=== PATIENT | female | born 1995 | race Caucasian/White ===

== ENCOUNTER 2019-12-03 20:03 | Emergency (ER) | payer BC, MEDICAID ==
--- NOTE | 2019-12-03 21:44 | EDM.PDOC ---
ED HPI GENERAL MEDICAL PROBLEM - General Chief Complaint: General Stated Complaint: FLU SYMPTOMS/31 WKS Time Seen by Provider: 12/03/19 20:23 Source of Information: Reports: Patient History Limitations: Reports: No Limitations - History of Present Illness INITIAL COMMENTS - FREE TEXT/NARRATIVE: Patient is a 24-year-old female who presents with complaints of sore throat, cough, and congestion for the last 2 days. Patient was seen at the walk-in clinic yesterday and tested for strep which was negative. She returns today concerned that she may have influenza as she has been recently exposed to individuals who have influenza A. States her temperature at home was 99.8. She has not taken any antipyretics. She has had some episodes of feeling hot today. Denies any nausea, vomiting, or diarrhea. Patient is 31 weeks . Patient states the fetus has been active. Generalized Pain Score (Numeric/FACES): 3 - Related Data Allergies Allergy/AdvReac Type Severity Reaction Status Date / Time No Known Allergies Allergy Verified 12/03/19 20:17 Home Meds: Home Meds Mv-Mn/Iron/FA/Herbal/Digestive [ One Tablet] 1 each PO DAILY 11/07/19 [ History] Albuterol [Ventolin HFA] 2 puff INH Q4HR PRN 12/03/19 [History] Past Medical History HEENT History: Reports: Other (See Below) Other HEENT History: scar tissue L ear Respiratory History: Reports: Asthma GEAR TESTER History: Reports: , Other (See Below) Other GEAR TESTER History: PCOS and gestational dm Endocrine/Metabolic History: Reports: Diabetes, Gestational Social & Family History - Family History Family Medical History: Noncontributory - Tobacco Use Smoking Status *Q: Former Smoker Used Tobacco, but Quit: Yes Month/Year Tobacco Last Used: 04/2019 - Caffeine Use Caffeine Use: Reports: Soda - Recreational Drug Use Recreational Drug Use: No ED ROS GENERAL - Review of Systems Review Of Systems: Comprehensive ROS is negative, except as noted in HPI. ED EXAM, GENERAL - Physical Exam Exam: See Below Exam Limited By: No Limitations General Appearance: Alert, WD/WN, No Apparent Distress Ears: Normal External Exam, Normal Canal, Hearing Grossly Normal, Normal TMs Throat/Mouth: Normal Inspection, Normal Lips, Normal Teeth, Normal Gums, Normal Oropharynx, Normal Voice, No Airway Compromise Respiratory/Chest: No Respiratory Distress, Lungs Clear, Normal Breath Sounds, No Accessory Muscle Use, Chest Non-Tender Cardiovascular: Normal Peripheral Pulses, Regular Rate, Rhythm, No Edema, No Gallop, No JVD, No Murmur, No Rub (Female) Exam: Other ( heart tones at 148-159.) Extremities: Normal Inspection, Normal Range of Motion, Non-Tender, Normal Capillary Refill, No Pedal Edema Neurological: Alert, Oriented, CN II-XII Intact, Normal Cognition, Normal Gait, Normal Reflexes, No Motor/Sensory Deficits Psychiatric: Normal Affect, Normal Mood Skin Exam: Warm, Dry, Intact, Normal Color, No Rash Course - Vital Signs Last Recorded V/S: Last Vital Signs Temp 98.7 F 12/03/19 20:13 Pulse 117 H 12/03/19 20:13 Resp 20 12/03/19 20:13 BP 147/82 H 12/03/19 20:13 Pulse Ox 98 12/03/19 20:13 Departure - Departure Time of Disposition: 21:43 Disposition: Home, Self-Care 01 Condition: Fair Clinical Impression: Viral illness - Discharge Information *PRESCRIPTION DRUG MONITORING PROGRAM REVIEWED*: No *COPY OF PRESCRIPTION DRUG MONITORING REPORT IN PATIENT JOSE: No Instructions: Viral Respiratory Infection, [id number] Referrals: Ilda Palafox MD [Primary Care Provider] - Forms: ED Department Discharge Additional Instructions: You were seen in the emergency department today for sore throat and flulike symptoms. An influenza screen was done and that was negative. You verbalized that she had previously been checked for strep and that was negative. It is likely that you are suffering from a viral respiratory infection. Continue to use Tylenol as needed for any fever or discomfort. If you develop any worsening symptoms of concern, please do not hesitate to return to the ER or follow-up with your primary care provider. Sepsis Event Note - Evaluation Sepsis Screening Result: No Definite Risk - Focused Exam Vital Signs: Vital Signs Temp Pulse Resp BP Pulse Ox 12/03/19 20:13 98.7 F 117 H 20 147/82 H 98 Date Exam was Performed: 12/03/19 Time Exam was Performed: 21:44
== END 2019-12-03 22:01 | disposition home or self-care (01) ==
LOC: JD.ED 20:03
DX: O98.513 Other viral diseases complicating pregnancy, third trimester (principal); B34.9 Viral infection, unspecified; O99.513 Diseases of the respiratory system complicating pregnancy, third trimester; J45.909 Unspecified asthma, uncomplicated; O24.419 Gestational diabetes mellitus in pregnancy, unspecified control; Z87.891 Personal history of nicotine dependence; Z3A.31 31 weeks gestation of pregnancy
CPT/HCPCS: 87804; 99282; 99283